=== PATIENT | male | born 1990 | race Caucasian/White ===

== ENCOUNTER → 2020-04-18 15:16 | Outpatient (CLI) | payer OTHER, SELFPAY ==
--- NOTE | ~2020-04-18 | US_ITS ---
EXAMINATION: US soft tissue head and neck EXAM DATE: 04/18/2020 15:30 INDICATION: Left supraclavicular palpable abnormality. TECHNIQUE: Multiple grayscale and Doppler images of the left supraclavicular palpable abnormality wer e obtained (by a technologist who performed the scan) and subsequently reviewed. There is no prior s tudy for comparison. FINDINGS: Small mass consistent with lymph node at symptomatic left supraclavicular location, measuring 1.0 x 0 .6 x 0.5 cm. This does have a normal expected fatty hilum and is considered within normal size limits . Recommend following this up clinically and if it increases in size, or there is evidence of cervic al lymphadenopathy on clinical exam, consider neck CT with contrast for further evaluation. IMPRESSION: Left supraclavicular lymph node most likely reactive. Follow-up recommendation above. Reviewed, dictated and finalized at location B. IMPRESSION: Left supraclavicular lymph node most likely reactive. Follow-up rec ommendation above.
== END ==
PROVIDERS: PCP Family Medicine; Visit Provider Physician Assistant
DX: R22.2 Localized swelling, mass and lump, trunk (principal)
CPT/HCPCS: 76536

== ENCOUNTER → 2020-06-01 14:03 | Outpatient (CLI) | payer OTHER, SELFPAY ==
--- NOTE | ~2020-06-01 | CT_ITS ---
EXAMINATION: CT soft tissue neck w con DATE: 06/01/2020 14:50 INDICATION: Left supraclavicular lymphadenopathy. TECHNIQUE: Computed tomography (CT) of the neck was performed with 75 mL Omnipaque-350 intravenous co ntrast. Automated exposure control and iterative reconstruction technique were employed. The dose-dean gth product was 392.56 mGy-cm. COMPARISON: Ultrasound 04/18/2020 FINDINGS: There are no pathologically enlarged lymph nodes. The cervical carotid arteries are normal. There is no abnormal mass. There is mild cervical spondylosis. IMPRESSION: 1. No abnormal lymphadenopathy. Reviewed, dictated and finalized at location A.
== END ==
PROVIDERS: PCP Family Medicine; Visit Provider Physician Assistant Medical
DX: R59.9 Enlarged lymph nodes, unspecified (principal)
CPT/HCPCS: 70491; Q9967

== ENCOUNTER 2021-04-03 22:01 | Emergency (ER) | payer OTHER, SELFPAY ==
[2021-04-03 22:03] VITALS: BP 146/97; PULSE 66; RESP 16; TEMP 36.3; O2SAT 100
[2021-04-04] MEDS: DOCUSATE SODIUM 100 MG CAPSULE PO (00:03)
--- NOTE | 2021-04-04 01:36 | ED.EAR ---
HPI - Ear Problem General Chief complaint: Ear Stated complaint: ear pain Time Seen by Provider: 04/03/21 22:24 Source: patient Mode of arrival: ambulatory Limitations: no limitations History of Present Illness HPI Narrative: 30-year-old male Complains of a fullness and muffling in his left ear He was unable to alleviate this by trying to clean it out with a Q-tip Really no pain and no fever, has not been swimming Related Data Home Medications Medication Instructions Recorded Confirmed multivitamin 1 tablet PO DAILY 09/03/19 02/09/21 omega 5-djv-rsb-fish oil 1,000 mg 1 cap PO DAILY 09/03/19 02/09/21 (120 mg-180 mg) capsule Allergies Allergy/AdvReac Type Severity Reaction Status Date / Time No Known Allergies Allergy Mild Verified 04/03/21 22:06 Review of Systems ENT: Reports as per HPI Respiratory: Respiratory: Denies cough and Denies dyspnea PMFSH Family History Family History Mother Family history of colonic diverticulitis Father Family history of hypercholesterolemia Grandparent Family history of hypercholesterolemia Family history of cardiovascular disease Family history of malignant neoplasm of breast Social History Social History Tobacco type: cigars Additional smoking assessment comments: Smokes 1-2 cigars per year Alcohol intake: current Exam Const: General: no acute distress and alert Orientation/consciousness: patient oriented x3 HENMT: Other: Small left-sided cerumen impaction Neck: Neck: no lymphadenopathy Neuro: General: patient oriented x3 Course Vital Signs Vital signs: Vital Signs Temperature 36.3 C L 04/03/21 22:03 Pulse Rate 66 04/03/21 22:03 Respiratory Rate 16 04/03/21 22:03 Blood Pressure 146/97 H 04/03/21 22:03 Pulse Oximetry 100 04/03/21 22:03 Temperature 36.3 C L 04/03/21 22:03 Pulse Rate 66 04/03/21 22:03 Respiratory Rate 16 04/03/21 22:03 Blood Pressure 146/97 H 04/03/21 22:03 Pulse Oximetry 100 04/03/21 22:03 Procedures Ear Wax Removal Left Ear: Ear Wax Removal Date: 04/04/21 Ear Wax Removal Time: 01:39 Cerumenolytic Used: Colace Results: Re-examined: some cerumen remains Ear Canal Exam: atraumatic Patient Tolerated Procedure: well Complications: no problems Technique: ear canal irrigated Medical Decision Making Vital Signs Vital Signs: Vital Signs Temperature 36.3 C L 04/03/21 22:03 Pulse Rate 66 04/03/21 22:03 Respiratory Rate 16 04/03/21 22:03 Blood Pressure 146/97 H 04/03/21 22:03 Pulse Oximetry 100 04/03/21 22:03 Temperature 36.3 C L 04/03/21 22:03 Pulse Rate 66 04/03/21 22:03 Respiratory Rate 16 04/03/21 22:03 Blood Pressure 146/97 H 04/03/21 22:03 Pulse Oximetry 100 04/03/21 22:03 Discharge Plan Discharge Clinical Impression: Cerumen impaction Patient Disposition: Home, Self-Care Condition: Improved Additional Instructions: You can use an [id number] earwax softener as needed and do not try to clean it out with a Q-tip Prescriptions: No Action multivitamin Tablet 1 tablet PO DAILY RF: 0 omega 9-whg-vtu-fish oil [Fish Oil] 1,000 mg (120 mg-180 mg) capsule 1 cap PO DAILY RF: 0 Follow-up/Referrals: Kp Hernandez MD [Primary Care Provider] -
== END 2021-04-04 02:06 | disposition home or self-care (01) ==
PROVIDERS: Emergency Provider Emergency Medicine; PCP Family Medicine
DX: H61.22 Impacted cerumen, left ear (principal)
CPT/HCPCS: 69209; 99283; A9270

== ENCOUNTER 2021-04-04 16:42 | Emergency (ER) | payer OTHER, SELFPAY ==
[2021-04-04 16:49] VITALS: BP 153/84; PULSE 78; RESP 16; TEMP 36.4; O2SAT 100
--- NOTE | 2021-04-04 17:04 | ED.EAR ---
HPI - Ear Problem General Chief complaint: Ear Stated complaint: Ear Pain Time Seen by Provider: 04/04/21 16:52 Source: patient and RN notes reviewed Mode of arrival: ambulatory Limitations: no limitations History of Present Illness HPI Narrative: Patient presents today complaining of left ear pain. Reports he had a cerumen impaction yesterday and went to the ER to get his ear cleaned out. It was flushed with water after instillation of Colace. He was told to get Debrox and continue to flush his ear with Debrox and peroxide. He flushed his ear 4 times today with peroxide and use Debrox once. He is having pain to the ear radiating to the left jaw. Currently rates pain 12/09. MD Complaint: ear pain Related Data Home Medications Medication Instructions Recorded Confirmed multivitamin 1 tablet PO DAILY 09/03/19 02/09/21 Allergies Allergy/AdvReac Type Severity Reaction Status Date / Time No Known Allergies Allergy Mild Verified 04/03/21 22:06 Review of Systems Review of Systems: CONSTITUTIONAL: Denies body aches, fever, chills, or sweats. EYES: Denies visual changes, redness, or discharge. ENT: Denies rhinorrhea, congestion, sore throat. + Left ear pain CARDIOVASCULAR: Denies chest pain, palpitations, or edema. RESPIRATORY: Denies cough or dyspnea. GASTROINTESTINAL: Denies abdominal pain, nausea, vomiting, or diarrhea. GENITOURINARY: Denies dysuria or hematuria. SKIN: Denies rash, itching, or wounds. MUSCULOSKELETAL: Denies back pain, joint pain, or myalgia. NEUROLOGIC: Denies headache, numbness, tingling, or weakness. PSYCH: Denies depression or anxiety. COUNT INCLUDES THE [facility] Family History Family History Mother Family history of colonic diverticulitis Father Family history of hypercholesterolemia Grandparent Family history of hypercholesterolemia Family history of cardiovascular disease Family history of malignant neoplasm of breast Social History Social History Tobacco type: cigars Additional smoking assessment comments: Smokes 1-2 cigars per year Alcohol intake: current Comments At time of signature, I have reviewed and agree with nursing past medical, surgical, social and family history unless otherwise noted. Please see nursing chart for further information. There is no relevant family history pertinent to the presenting complaint Exam Narrative: GENERAL: Well-appearing, well-nourished, and in no acute distress. HEAD: Normocephalic, atraumatic. EYES: EOMI. No redness or drainage. Conjunctivae normal. ENT: Mucous membranes pink and moist. Nares clear. No rhinorrhea. TMs normal bilaterally. Left tragal tenderness. Mild edema and erythema to the left ear canal with white debris. NECK: Normal AROM. Supple. No lymphadenopathy. CHEST: No respiratory distress. EXTREMITIES: Normal range of motion. No edema. SKIN: Warm, dry, no rash. Capillary refill normal. Normal skin turgor. NEURO: No focal deficits. Alert and oriented x3. Gait steady. PSYCH: Normal affect. No signs of depression or anxiety. Course Vital Signs Vital signs: Vital Signs Temperature 97.6 F 04/04/21 16:49 Pulse Rate 78 04/04/21 16:49 Respiratory Rate 16 04/04/21 16:49 Blood Pressure 153/84 H 04/04/21 16:49 Pulse Oximetry 100 04/04/21 16:49 Temperature 97.6 F 04/04/21 16:49 Pulse Rate 78 04/04/21 16:49 Respiratory Rate 16 04/04/21 16:49 Blood Pressure 153/84 H 04/04/21 16:49 Pulse Oximetry 100 04/04/21 16:49 Reviewed. Pt has been instructed to follow up with his PCP regarding his elevated blood pressure today. Medical Decision Making Differential Diagnosis Differential Diagnosis: Otitis media, otitis externa, ruptured TM, serous otitis, eustachian tube dysfunction, cerumen impaction Vital Signs Vital Signs: Vital Signs Temperature 97.6 F 04/04/21 16:49 Pulse Rate 78
== END 2021-04-04 17:31 | disposition home or self-care (01) ==
PROVIDERS: Emergency Provider Nurse Practitioner; PCP Family Medicine
DX: H66.92 Otitis media, unspecified, left ear (principal); F17.290 Nicotine dependence, other tobacco product, uncomplicated
CPT/HCPCS: 99211; G0463

== ENCOUNTER 2022-02-15 11:03 | Emergency (ER) | payer OTHER, SELFPAY ==
[2022-02-15 11:24] VITALS: BP 140/90; PULSE 72; RESP 16; TEMP 36.9; O2SAT 100
--- NOTE | 2022-02-15 11:49 | ED.URI ---
HPI - URI/Sore Throat General Chief Complaint: Upper Respiratory Infection Stated Complaint: covid positive, congestion Time Seen by Provider: 02/15/22 11:32 Source: patient Mode of arrival: ambulatory Limitations: no limitations History of Present Illness HPI Narrative: Patient presents today complaining of nasal congestion and fatigue. He tested positive for COVID-19 on February 02. Continues to have some symptoms although most of his symptoms have resolved. He has been taking Mucinex, Rylee-[place] cold and flu, and vitamin C with some relief. He is a non-smoker. History of childhood asthma. He has been vaccinated and boosted against COVID-19. Related Data Home Medications Medication Instructions Recorded Confirmed No Home Medications 02/15/22 02/15/22 Allergies Allergy/AdvReac Type Severity Reaction Status Date / Time No Known Allergies Allergy Mild Verified 02/15/22 11:36 Review of Systems Review of Systems: CONSTITUTIONAL: Denies body aches, fever, chills, or sweats.+ Fatigue EYES: Denies visual changes, redness, or discharge. ENT: Denies rhinorrhea, sore throat, or otalgia.+ Nasal congestion CARDIOVASCULAR: Denies chest pain, palpitations, or edema. RESPIRATORY: Denies cough or dyspnea. GASTROINTESTINAL: Denies abdominal pain, nausea, vomiting, or diarrhea. GENITOURINARY: Denies dysuria or hematuria. SKIN: Denies rash, itching, or wounds. MUSCULOSKELETAL: Denies back pain, joint pain, or myalgia. NEUROLOGIC: Denies headache, numbness, tingling, or weakness. PSYCH: Denies depression or anxiety. [facility] Family History Family History Mother Family history of colonic diverticulitis Father Family history of hypercholesterolemia Grandparent Family history of hypercholesterolemia Family history of cardiovascular disease Family history of malignant neoplasm of breast Social History Social History Tobacco type: cigars Additional smoking assessment comments: Smokes 1-2 cigars per year Alcohol intake: current Comments At time of signature, I have reviewed and agree with nursing past medical, surgical, social and family history unless otherwise noted. Please see nursing chart for further information. There is no relevant family history pertinent to the presenting complaint Exam Narrative: GENERAL: Well-appearing, well-nourished, and in no acute distress. HEAD: Normocephalic, atraumatic. EYES: EOMI. No redness or drainage. Conjunctivae normal. ENT: Mucous membranes pink and moist. Nares clear. No rhinorrhea. TMs normal bilaterally. Throat normal. Uvula midline. NECK: Normal AROM. Supple. No lymphadenopathy. CHEST: No respiratory distress. Clear to auscultation. HEART: Regular rate and rhythm. No murmur appreciated. Normal peripheral pulses. EXTREMITIES: Normal range of motion. No edema. SKIN: Warm, dry, no rash. Capillary refill normal. Normal skin turgor. NEURO: No focal deficits. Alert and oriented x3. Gait steady. PSYCH: Normal affect. No signs of depression or anxiety. Course Course Emergency Course: At this time, patient does not need any additional prescription medications. He has been instructed to take Sudafed for his nasal congestion. States he does continue to improve every day. At this time I do not feel he needs antibiotics. Level of Care: Express Care Visit Vital Signs Vital signs: Vital Signs Temperature 98.4 F 02/15/22 11:24 Pulse Rate 72 02/15/22 11:24 Respiratory Rate 16 02/15/22 11:24 Blood Pressure 140/90 02/15/22 11:24 Pulse Oximetry 100 02/15/22 11:24 Oxygen Delivery Room Air 02/15/22 11:24 Temperature 98.4 F 02/15/22 11:24 Pulse Rate 72 02/15/22 11:24 Respiratory Rate 16 02/15/22 11:24 Blood Pressure 140/90 02/15/22 11:24 Pulse Oximetry 100 02/15/22 11:24 Oxygen Delivery Room Air 02/15/22 11:24
== END 2022-02-15 13:03 | disposition home or self-care (01) ==
PROVIDERS: Emergency Provider Nurse Practitioner; PCP Family Medicine
DX: R09.81 Nasal congestion (principal); Z72.0 Tobacco use; Z86.16 Personal history of COVID-19
CPT/HCPCS: 99211; G0463

== ENCOUNTER 2022-12-01 14:02 | Emergency (ER) | payer OTHER, SELFPAY ==
[2022-12-01 14:13] VITALS: BP 134/91; PULSE 76; RESP 16; TEMP 36.6; O2SAT 99
--- NOTE | 2022-12-01 14:16 | ED.WOUNDLAC ---
HPI - Wound/Laceration General Chief Complaint: Wound/Laceration Stated Complaint: lt middle finger injury Time Seen by Provider: 12/01/22 14:16 Source: patient Mode of arrival: ambulatory Limitations: no limitations History of Present Illness HPI narrative: Masoud is a 32-year-old male patient presenting to the clinic today with complaints of a laceration to his left middle finger. He reports he was cutting up a cucumber and cut his finger left middle finger on accident. His tetanus shot is not up today Related Data Allergies Allergy/AdvReac Type Severity Reaction Status Date / Time No Known Allergies Allergy Mild Verified 04/26/22 14:54 Review of Systems Review of Systems: Pertinent positives per HPI. Patient denies any fever, chills, rash, headache, visual changes, dizziness, cough, runny nose, sore throat, shortness of breath, chest pain, palpitations, nausea, vomiting, diarrhea, constipation, abdominal pain, or any urinary issues. PMFSH Family History Family History Mother Family history of colonic diverticulitis Father Family history of hypercholesterolemia Grandparent Family history of hypercholesterolemia Family history of cardiovascular disease Family history of malignant neoplasm of breast Social History Social History Smoking status: Light tobacco smoker (cigars) Tobacco type: cigars Additional smoking assessment comments: Smokes 1-2 cigars per year Alcohol intake: current Comments At the time of my signature, I reviewed and agree with the nursing past medical, surgical, social, and family history. There is no relevant family history pertinent to the patient complaint. Exam Narrative: General: Well-developed, well nourished, in no apparent distress Head: Normocephalic, atraumatic. Cardio: Regular rate and rhythm, s1 and s2 normal, no murmur appreciated. Resp: Clear to auscultation bilaterally, no rhonchi, rales, wheezing or rubs. Integumentary: [place], warm, and dry, intact without lesion, 1 cm laceration to the left middle distal medial finger with medial corner of distal nail involvement. Course Course Emergency Course: Portions of this record may have been created with voice recognition software. Level of Care: Express Care Visit Vital Signs Vital signs: Vital Signs Temperature 36.6 C 12/01/22 14:13 Pulse Rate 76 12/01/22 14:13 Respiratory Rate 16 12/01/22 14:13 Blood Pressure 134/91 H 12/01/22 14:13 Pulse Oximetry 99 12/01/22 14:13 Temperature 36.6 C 12/01/22 14:13 Pulse Rate 76 12/01/22 14:13 Respiratory Rate 16 12/01/22 14:13 Blood Pressure 134/91 H 12/01/22 14:13 Pulse Oximetry 99 12/01/22 14:13 Vital signs reviewed Procedures Laceration Laceration 1: Date: 12/01/22 Site: hand (Third finger) Side (If applicable): left Size (cm): 1 Description: linear and flap Depth: simple, single layer Local Anesthetic: lidocaine 1% Amount of anesthesia used (mL): 0.5 Pre-repair: wound explored and irrigated ====== Skin Level ====== Skin layer closed with: nylon Size (cm): 4-0 Number of sutures: 2 Technique: simple, interrupted ====== Subcutaneous Layer ====== ====== Muscle Layer ====== ====== Tendon Layer ====== Dressing: Verbal consent obtained for laceration repair. Risk and benefits explained and patient voiced understanding. Area was cleansed with Techni care and a 25 gauge needle was then used to instill (0.5) ml of 1% lidocaine without epi into the wound edges. Area was prepped and draped using sterile technique. A 4-0 suture on a p needle was used to place (to) interrupted sutures bringing the wound edges together- well approximated. Patient tolerated procedure well. Sterile dressing applied. MDM - Wound/L
[2022-12-01] MEDS: TETANUS,DIPHTHERIA,AC PERTUSSIS ADULT (0.5 ML) BOOSTRIX IM (14:40)
== END 2022-12-01 14:59 | disposition home or self-care (01) ==
PROVIDERS: Emergency Provider Nurse Practitioner Family; PCP Family Medicine
DX: S61.213A Laceration without foreign body of left middle finger without damage to nail, initial encounter (principal); W45.8XXA Other foreign body or object entering through skin, initial encounter; Y93.G1 Activity, food preparation and clean up; Z23 Encounter for immunization; F17.290 Nicotine dependence, other tobacco product, uncomplicated
CPT/HCPCS: 12001; 90471; 90715; 99212; 99213; G0463

== ENCOUNTER 2023-08-11 15:58 | Outpatient (CLI) | payer OTHER, SELFPAY ==
[2023-08-11 18:59] LABS: Basophils Percent Auto 0.4 % (0.2-1.2); Eosinophils Percent Auto 0.6 % (0-4.4); Hematocrit 45.5 % (42.0-52.0); Hemoglobin 14.9 g/dL (14.0-18.0); Immature Granulocyte Absolute 0.01 K/mm3 (0.00-0.031); Immature Granulocyte Percent A 0.1 % (0-0.5); Lymphocytes Absolute Auto 1.96 K/mm3 (0.9-3.2); Mean Corpuscular HGB Conc 32.7 g/dl (32-36); Mean Corpuscular Hemoglobin 27.9 pg (26-34); Mean Platelet Volume 10.6 fl (7.4-10.4); Monocytes Absolute Auto 0.4 K/mm3 (0.1-0.6); Monocytes Percent Auto 6.2 % (2.6-8.5); Neutrophils Absolute Auto 4.3 K/mm3 (1.3-6.7); Neutrophils Percent Auto 63.7 % (45.5-73.1); Platelet Count Result 231 k/mm3 (150-375); Red Blood Count 5.35 M/mm3 (4.6-6.20); Red Cell Distribution Width 12.4 % (11.5-14.5); White Blood Count 6.8 K/mm3 (4.5-10.0)
[2023-08-11 19:35] LABS: Anion Gap 9 mmol/L (8-16); Blood Urea Nitrogen 18 mg/dL (9-20); Calcium 9.7 mg/dL (8.4-10.2); Carbon Dioxide 31 mmol/L (22-30); Chloride 102 mmol/L (98-107); Cholesterol 192 mg/dL (0-200); Estimated Glomerular Filt Rate > 60; Glucose 92 mg/dL (65-110); HDL Direct 39 mg/dL; Potassium 4.1 mmol/L (3.4-5.0); Sodium 142 mmol/L (137-145); Triglycerides 87 mg/dL (<150)
[2023-08-11 19:37] LABS: Vitamin D 25 Hydroxy 23.2 ng/mL
[2023-08-11 19:47] LABS: LDL Cholesterol Direct 116 mg/dL
== END 2023-08-11 15:59 | disposition home or self-care (01) ==
LOC: ANHGOSHLAB 16:00
PROVIDERS: PCP Family Medicine; Visit Provider Nurse Practitioner Family
DX: Z00.00 Encounter for general adult medical examination without abnormal findings (principal)
CPT/HCPCS: 36415; 80048; 80061; 82306; 82607; 84443; 85025

== ENCOUNTER 2023-08-26 09:16 | Emergency (ER) | payer OTHER, SELFPAY ==
[2023-08-26 09:38] VITALS: BP 124/86; PULSE 87; RESP 16; TEMP 36.3; O2SAT 100
--- NOTE | 2023-08-26 09:57 | ED.URI ---
HPI - URI/Sore Throat General Chief Complaint: Upper Respiratory Infection Stated Complaint: Fever, Congestion, Lethargic Time Seen by Provider: 08/26/23 09:45 Source: patient Mode of arrival: ambulatory Limitations: no limitations History of Present Illness HPI Narrative: Masoud is a 32-year-old male patient presenting to the clinic today with complaints of fever, sore throat, headache, congestion, and lethargy. States his highest fever was 102. Symptoms been going on for 3 days. Has been taking Rylee-[place] to help alleviate his symptoms. Denies any shortness of breath or chest pain. MD elicited complaint: fever, cough, sore throat and nasal congestion Related Data Allergies Allergy/AdvReac Type Severity Reaction Status Date / Time No Known Allergies Allergy Mild Verified 08/11/23 15:27 Review of Systems Review of Systems: Pertinent positives per HPI. Patient denies any fever, chills, rash, headache, visual changes, dizziness, shortness of breath, chest pain, palpitations, nausea, vomiting, diarrhea, constipation, abdominal pain, or any urinary issues. PMFSH Family History Family History Mother Family history of colonic diverticulitis Father Family history of hypercholesterolemia Grandparent Family history of hypercholesterolemia Family history of cardiovascular disease Family history of malignant neoplasm of breast Social History Social History Smoking status: Never smoker Tobacco type: cigars Additional smoking assessment comments: Smokes 1-2 cigars per year Alcohol intake: current Comments At the time of my signature, I reviewed and agree with the nursing past medical, surgical, social, and family history. There is no relevant family history pertinent to the patient complaint. Exam Narrative: General: Well-developed, well nourished, in no apparent distress Head: Normocephalic, atraumatic Eyes: Pupils equally round and reactive to light bilaterally, EOM intact, sclera and conjunctive clear, no discharge, lids normal Ears: TMs intact and clear, ear canals clear, no drainage, grossly hearing normal. Nose: Nares patent, clear discharge, no inflammation, no sinus tenderness. Mouth: Oral pharynx without lesions or masses, good dentition, MMM. Neck: Supple, trachea midline, no enlargement of anterior or posterior cervical nodes, no thyroid masses or goiter palpable. Cardio: Regular rate and rhythm, s1 and s2 normal, no murmur appreciated. Resp: Clear to auscultation bilaterally, no rhonchi, rales, wheezing or rubs Course Course Emergency Course: Portions of this record may have been created with voice recognition software. Level of Care: Express Care Visit Vital Signs Vital signs: Vital Signs Temperature 36.3 C L 08/26/23 09:38 Pulse Rate 87 08/26/23 09:38 Respiratory Rate 16 08/26/23 09:38 Blood Pressure 124/86 08/26/23 09:38 Pulse Oximetry 100 08/26/23 09:38 Temperature 36.3 C L 08/26/23 09:38 Pulse Rate 87 08/26/23 09:38 Respiratory Rate 16 08/26/23 09:38 Blood Pressure 124/86 08/26/23 09:38 Pulse Oximetry 100 08/26/23 09:38 Vital signs reviewed MDM - URI/Sore Throat MDM Narrative Medical decision making narrative: At the time of visit patient is resting comfortably on the exam table. Patient appears to be nontoxic. Strep, influenza, COVID testing were negative. Lung sounds are clear. No sign of bacterial infection. Supportive measures were discussed with the patient and they voiced understanding discharge instructions and agrees to treatment plan. Return precautions reviewed Differential Diagnosis Differential diagnosis: Likely upper respiratory infection, otitis media, sinusitis, viral infection, bronchitis, influenza, pharyngitis and other (COVID) Lab Data Labs: Influenza A Screen Negative
== END 2023-08-26 10:02 | disposition home or self-care (01) ==
PROVIDERS: Emergency Provider Nurse Practitioner Family; PCP Family Medicine
DX: B34.9 Viral infection, unspecified (principal); Z20.822 Contact with and (suspected) exposure to COVID-19
CPT/HCPCS: 87081; 87426; 87804; 87880; 99213; C9803; G0463

== ENCOUNTER 2025-02-18 09:28 | Emergency (ER) | payer OTHER, SELFPAY ==
[2025-02-18 09:40] VITALS: BP 120/83; PULSE 72; RESP 16; TEMP 36.5; O2SAT 100
--- NOTE | 2025-02-18 09:40 | ED.EAR ---
HPI - Ear Problem General Chief complaint: Ear Stated complaint: EARACHE Time Seen by Provider: 02/18/25 09:47 Source: patient and RN notes reviewed Mode of arrival: ambulatory Limitations: no limitations History of Present Illness HPI Narrative: 34-year-old male presents with concern for right ear pain. He is currently being treated for otitis media, 7 days in to amoxicillin. He is also taking Flonase and occasionally has been taking Sudafed. He has been dealing with ear pressure and discomfort for about a month. 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 He reports over the last couple of days he has had some new discomfort in his ear, tenderness when he presses around his ear. He reports he has been using hydrogen peroxide in the ear canal every 2 hours to help kill bacteria Complaint: ear pain Related Data Home Medications ?Medication ?Instructions ?Recorded ?Confirmed ?Last Taken ?Type ascorbate calcium (vitamin C) 814 814 mg PO DAILY 08/12/24 02/18/25 Unknown History mg/gram oral powder omega 9-ykh-sjr-fish oil 60 mg-90 1 cap PO DAILY 08/12/24 02/18/25 Unknown History mg-500 mg capsule (Fish Oil) Allergies Allergy/AdvReac Type Severity Reaction Status Date / Time No Known Allergies Allergy Mild Verified 02/18/25 09:41 Review of Systems Review of Systems: CONSTITUTIONAL: Denies malaise, chills, sweats, or fever. EYES: Denies visual changes, redness, or discharge. ENT: Denies rhinorrhea, congestion, sinus pain, and sore throat. Reports right ear pain, denies drainage CARDIOVASCULAR: Denies chest pain, palpitations, or edema. RESPIRATORY: Denies cough. Denies dyspnea. GASTROINTESTINAL: Denies abdominal pain, nausea, vomiting, diarrhea SKIN: Denies rash or itching. MUSCULOSKELETAL: Denies myalgia. NEUROLOGIC: Denies headache. All systems reviewed & are unremarkable except as noted in HPI and below PMFSH Family History Family History Mother Family history of colonic diverticulitis Father Family history of hypercholesterolemia Grandparent Family history of hypercholesterolemia Family history of cardiovascular disease Family history of malignant neoplasm of breast Social History Social History Smoking status: Never smoker Tobacco type: cigars Additional smoking assessment comments: Smokes 1-2 cigars per year Alcohol intake: current Comments At time of signature, agree with nursing past medical, surgical, social and family history. There is no relevant family history pertinent to the presenting complaint Exam Narrative: GENERAL: Well-appearing, well-nourished, and in no acute distress. HEAD: Normocephalic EYES: PERRLA, conjunctivae clear ENT: Nares clear. Mucous membranes moist. TM pearly macias with dull light reflex bilaterally; no tragal tenderness. Right EAC erythematous slightly edematous. NECK: Supple. No lymphadenopathy CHEST: Clear to auscultation, breath sounds equal. No wheezing, rhonchi, rales, or stridor. No respiratory distress, speaks in full sentences. HEART: Regular rate and rhythm. No murmur heard. SKIN: Warm, dry, no rash. NEURO: Alert and oriented x3. PSYCH: Normal mood and affect Course Course Emergency Course: Patient is aware of diagnosis, understands and agrees to treatment plan. Anticipatory guidance given. Patient agrees to follow-up as directed and is aware of reasons to seek care at the emergency department. Portions of this record may have been created with voice recognition software Level of Care: Express Care Visit Vital Signs Vital signs: Reviewed. Medical Decision Making MDM Narrative Medical decision making narrative: I evaluated this in the [facility] care. History is obtained from patient who is an independent historian and physical exam was performed.? Available medical records were reviewed. ? Exam findings and relevant testing show no acute concerns or changes; patient is non-toxic appearing and is in no distress. Differential diagnosis considered: Ramos virus, strep pharyngitis, allergic rhinitis, upper respiratory tract infection, sinusitis, rhinosinusitis, nasopharyngitis. viral pharyngitis, otitis media, otitis externa, otitis effusion, cerumen impaction, foreign body. Exam findings show no acute concerns or changes; patient is non-toxic appearing and is in no distress. Patient is appropriate for outpatient treatment and follow-up. ? Differential diagnosis and treatment plan were discussed with the patient. Patient agrees with discussion and after shared medical decision making agrees with plan of care. All questions were answered to the patient's satisfaction. Patient is appropriate for outpatient treatment and follow-up. Critical Care Time Critical Care Time Critical Care Time: No Discharge Plan Discharge Clinical Impression: Otitis externa Patient Disposition: Home Condition: Stable Instructions: How to Use Ear Drops (ED) Additional Instructions: 1) Please follow-up with your primary care doctor if you have any new symptoms or concerns. 2) If you have any urgent concerns please go to the ER. 3) Please take medications as prescribed, you may alternate Tylenol or ibuprofen as needed for pain. 4) Avoid putting any items in your ear such as Q-tips, earbuds, water. 5) Please read and follow information included in discharge instructions. Patient Language: Thai Prescriptions: New ofloxacin 0.3 % drops 5 drp RIGHT EAR DAILY 7 Days Qty: 10 0RF No Action omega 7-qru-yds-fish oil [Fish Oil] 60-90-500 mg capsule 1 cap PO DAILY ascorbate calcium (vitamin C) 814 mg/gram powder 814 mg PO DAILY fluticasone propionate [Flonase Allergy Relief] 50 mcg/actuation spray,suspension 2 spray intranasal DAILY Qty: 16 1RF Rx Instructions: administer into each nostril amoxicillin 500 mg capsule 500 mg PO Q8H Qty: 21 1RF Follow-up/Referrals: Kp Hernandez MD [Primary Care Provider] - Time of Disposition: 09:54
== END 2025-02-18 10:00 | disposition home or self-care (01) ==
PROVIDERS: Emergency Provider Nurse Practitioner; PCP Family Medicine
DX: H60.92 Unspecified otitis externa, left ear (principal)
CPT/HCPCS: 99213; G0463